=== PATIENT | female | born 1985 | race Caucasian/White ===

== ENCOUNTER 2022-07-07 05:30 | Inpatient (IN) | payer OTHER ==
[2022-07-08] MEDS ORDERED: Bupivacaine 0.25% HCL 30 ML VIAL ONE (08:00)
[2022-07-08] MEDS: Lactated Ringer's 1,000 ML IV SCH ×3 (08:30→17:00)
[2022-07-08] MEDS ORDERED: NS w/ Oxytocin 30 units 500 ML IV SCH ×3 (08:51→21:30)
[2022-07-08] MEDS ORDERED: Lidocaine 1% (PF) 30 ML VIAL SC PRN (08:51)
[2022-07-08] MEDS ORDERED: Promethazine HCl 25 MG/ML VIAL IM PRN ×2 (08:51→10:32)
[2022-07-08] MEDS ORDERED: Ibuprofen 800 MG TAB PO PRN (08:51)
[2022-07-08] MEDS ORDERED: Butorphanol Tartrate 1 MG/ML VIAL SLOW IVP PRN (08:51)
[2022-07-08] MEDS ORDERED: Ondansetron PF 4 MG/2 ML Vial IVP PRN ×3 (08:51→21:26)
[2022-07-08] MEDS ORDERED: hydrALAZINE 20 MG/ML VIAL SLOW IVP PRN ×2 (08:51→21:26)
[2022-07-08] MEDS ORDERED: HYDROcodone/Acetaminophen 5/325 mg Tablet PO PRN ×4 (08:51→21:26)
[2022-07-08 08:55] VITALS: BMI 27.4
[2022-07-08] MEDS ORDERED: Fentanyl 2 mcg/Bup 0.1% Cadd 100 ML ONE (09:24)
[2022-07-08 09:31] LABS: Hemoglobin 12.7 g/dL (12.0-15.5); Mean Corpuscular HGB CONC 34.3 g/dL (32.0-36.0); Mean Corpuscular Hemoglobin 32.6 pg (27.0-33.0); Mean Corpuscular Volume 94.9 fl (81.6-98.3); Mean Platelet Volume 10.8 fl (7.4-10.4); Platelet Count 202 10x3/uL (150-450); RBC Distribution Width 13.5 % (11.5-14.5); White Blood Cell (WBC) Count 8.7 10x3/uL (3.5-10.5)
[2022-07-08] MEDS ORDERED: Misoprostol 100 MCG TAB ONE (09:38)
[2022-07-08 10:05] LABS: Syphilis Antibody Nonreactive (Nonreactive); Syphilis Antibody Index 0.03 S/CO (<1.00 Non-Reactive)
[2022-07-08 10:06] LABS: HBSAg Index 0.24 S/CO (0-0.99); Hep B Surf Ag Non-Reactive S/CO (NonReactive)
[2022-07-08] MEDS ORDERED: ePHEDrine Sulfate 50 MG/10 ML VIAL SLOW IVP PRN (10:32)
[2022-07-08] MEDS ORDERED: Acetaminophen 325 MG TAB PO PRN (10:32)
[2022-07-08] MEDS ORDERED: Moisturizing Cream (Eucerin) 113 GM JAR TOP PRN (10:32)
[2022-07-08] MEDS ORDERED: diphenhydrAMINE 50 MG/ML VIAL IVP PRN (10:32)
[2022-07-08] MEDS ORDERED: Naloxone HCl 0.4 mg/ml Vial IVP PRN ×2 (10:32)
[2022-07-08] MEDS ORDERED: Lactated Ringer's 500 ML IV PRN (10:32)
[2022-07-08] MEDS ORDERED: Communication Order-Pharmacy FS SCH (10:45)
[2022-07-08] MEDS ORDERED: Fentanyl 2 mcg/Bupivacaine 0.1% Cassette 100 ML EPIDURAL SCH (10:45)
[2022-07-08] MEDS ORDERED: Misoprostol 100 MCG TAB VAG SCH (11:00)
[2022-07-08 11:39] LABS: SARS-CoV-2 NAA Rapid Test Not Detected (NotDetected)
[2022-07-08] MEDS ORDERED: Tranexamic Acid 1,000 MG/10 ML VIAL ONE (18:03)
[2022-07-08] MEDS ORDERED: Methylergonovine 0.2 MG/ML VIAL ONE (18:03)
[2022-07-08] MEDS ORDERED: Misoprostol 200 MCG TAB ONE (18:03)
[2022-07-08] MEDS ORDERED: Methylergonovine 0.2 MG/ML VIAL IM SCH (18:15)
[2022-07-08] MEDS ORDERED: Tranexamic Acid 1,000 MG in Sodium Chloride 0.9% 250 ML 250 ML IVPB SCH (18:15)
[2022-07-08] MEDS ORDERED: Benzocaine-Menthol 82.5 ML CAN TOP PRN (21:26)
[2022-07-08] MEDS ORDERED: Milk Of Magnesia 30 ML UDCUP PO PRN (21:26)
[2022-07-08] MEDS ORDERED: Bisacodyl 10 MG SUPP PR PRN (21:26)
[2022-07-08] MEDS ORDERED: Preparation H Ointment 28 GM TUBE PR PRN (21:26)
[2022-07-08] MEDS ORDERED: Boostrix 0.5 ML (Tdap) VIAL (>/=7 yrs of age) IM ONE (21:26)
[2022-07-08] MEDS ORDERED: diphenhydrAMINE 25 MG CAP PO PRN (21:26)
[2022-07-08] MEDS ORDERED: Lanolin Ointment 7 GM TUBE TOP PRN (21:26)
[2022-07-08] MEDS ORDERED: Docusate 100 MG CAP PO SCH (21:30)
[2022-07-08] MEDS: Ibuprofen 800 MG TAB PO SCH (23:02)
[2022-07-09] MEDS: Ibuprofen 800 MG TAB PO SCH ×2 (05:16→14:12)
[2022-07-09] MEDS: Ferrous Sulfate 325 MG TAB PO SCH (07:18)
[2022-07-09] MEDS ORDERED: Prenatal Vitamin 1 TAB PO SCH (09:00)
[2022-07-09] MEDS ORDERED: Docusate 100 MG CAP PO SCH (09:00)
[2022-07-09 20:38] VITALS: BP 99/56; TEMP 97.7
== END 2022-07-09 20:50 | disposition home or self-care (01) | DRG 807 ==
LOC: CSHLD 07-08 08:13 → CSHPED 07-08 22:44
PROVIDERS: ADMIT Obstetrics & Gynecology; ATTEND Obstetrics & Gynecology
PROC: 10E0XZZ Delivery of Products of Conception, External Approach (ICD-10-PCS; principal; 2022-07-08)
PROC: 10907ZC Drainage of Amniotic Fluid, Therapeutic from Products of Conception, Via Natural or Artificial Opening (ICD-10-PCS; 2022-07-08)
PROC: 0HQ9XZZ Repair Perineum Skin, External Approach (ICD-10-PCS; 2022-07-08)
DX: O99.284 Endocrine, nutritional and metabolic diseases complicating childbirth (principal); Z37.0 Single live birth; Z20.822 Contact with and (suspected) exposure to COVID-19; Z3A.39 39 weeks gestation of pregnancy; E03.9 Hypothyroidism, unspecified; Z79.890 Hormone replacement therapy; Z90.49 Acquired absence of other specified parts of digestive tract; O70.0 First degree perineal laceration during delivery; O69.89X0 Labor and delivery complicated by other cord complications, not applicable or unspecified
CPT/HCPCS: 36415; 51702; 85027; 86780; 86850; 86900; 86901; 87340; J2210; J2590; J7120; S0020; U0002